=== PATIENT | male | born 1990 | race Caucasian/White ===

== ENCOUNTER 2022-05-30 12:34 | Emergency (ER) | payer OTHER ==
[~2022-05-30] VITALS: Ht 177.8 cm; Wt 250.0 kg
[2022-05-30] MEDS ORDERED: KETOROLAC TROMETH 60MG/2ML VIAL IM ONE (13:00)
[2022-05-30 16:40] VITALS: BP 138/84
== END 2022-05-30 16:41 | disposition home or self-care (01) ==
LOC: EEVIPCON 12:34 → ER 12:34
DX: N43.3 Hydrocele, unspecified (principal); N50.811 Right testicular pain
CPT/HCPCS: 76870; 96372; 99284; J1885